=== PATIENT | female | born 1985 | race Two or more races ===

== ENCOUNTER 2017-06-10 13:34 | Inpatient (IN) | payer OTHER ==
[2017-06-10] MEDS ORDERED: LACTATED RINGERS with DEXTROSE 1,000 ML IV ONE (15:45)
[2017-06-10] MEDS: SODIUM CHLORIDE 0.9% FLUSH 10 ML SOL IV PRN ×2 (15:55→21:22)
[2017-06-10 16:47] LABS: APPEARANCE,URINE Clear; BILIRUBIN,URINE NEGATIVE (NEGATIVE); COLOR,URINE Yellow; GLUCOSE, URINE (UA) NEGATIVE (NEGATIVE); KETONES,URINE 2+ (NEGATIVE); LEUKOCYTE ESTERASE ,URINE NEGATIVE (NEGATIVE); NITRATE,URINE NEGATIVE (NEGATIVE); OCCULT BLOOD,URINE NEGATIVE (NEG-TRACE); PH,URINE 6.5
[2017-06-10 16:54] LABS: RBC,URINE 0-2 (0-3AV/HPF); WBC,URINE 0-2 (0-5AV/HPF)
[2017-06-10] MEDS ORDERED: CITRIC ACID/SODIUM CITRATE SOL PO ONE (17:07)
[2017-06-10] MEDS ORDERED: NALBUPHINE HCL 20 MG/ML SOL IV PRN (17:25)
[2017-06-10 17:32] LABS: BASOPHILS % (AUTO) 1 % (0-3); EOSINOPHILS % (AUTO) 1 % (0-9); HEMATOCRIT 33 % (35-47); MEAN CORPUSCULAR HGB CONC 36.7 gm/dl (32.0-36.0); MEAN CORPUSCULAR VOLUME 90 fL (81-99); MONOCYTES % (AUTO) 4.6 % (0-12)
[2017-06-10] MEDS: LACTATED RINGERS 1,000 ML IV SCH ×3 (18:05→23:56)
[2017-06-10 18:19] LABS: ABO B; ANTIBODY SCREEN Negative; RH TYPE Positive
[2017-06-10] MEDS ORDERED: CEFAZOLIN SODIUM 1 GM PDS IV ONE (19:00)
[2017-06-10] MEDS ORDERED: [UNRECOGNIZED DRUG - OTHER] IV ONE (19:11)
[2017-06-10] MEDS ORDERED: BENZOCAINE/MENTHOL 1 SPR TOP PRN (20:42)
[2017-06-10] MEDS ORDERED: TEMAZEPAM 15MG 15 MG CAP PO PRN (20:42)
[2017-06-10] MEDS ORDERED: WITCH HAZEL 1 EA PAD TOP PRN (20:42)
[2017-06-10] MEDS ORDERED: ONDANSETRON HCL 4 MG/2 ML SOL IV PRN (20:42)
[2017-06-10] MEDS ORDERED: METHYLERGONOVINE MALEATE 0.2 MG TAB PO PRN (20:42)
[2017-06-10] MEDS ORDERED: DIPHENHYDRAMINE 25 MG CAP PO PRN (20:42)
[2017-06-10] MEDS ORDERED: FLEET ENEMA PR PRN (20:42)
[2017-06-10] MEDS ORDERED: BISACODYL 10 MG SUP PR PRN (20:42)
[2017-06-10] MEDS ORDERED: KETOROLAC TROMETHAMINE 30 MG/ML SOL ONE (20:44)
[2017-06-10] MEDS: KETOROLAC TROMETHAMINE 30 MG/ML SOL IV PRN (21:22)
[2017-06-10] MEDS: DOCUSATE SODIUM 100 MG SGL PO SCH (21:33)
[2017-06-10] MEDS: CEFAZOLIN (PREMIX) 1 GM 1 GM/50 ML SOL IV SCH (22:03)
[2017-06-10] MEDS: APAP/HYDROCODONE 325/5 TAB PO PRN (23:54)
[2017-06-11] MEDS ORDERED: CEFAZOLIN (PREMIX) 1 GM 1 GM/50 ML SOL IV ONE (00:38)
[2017-06-11] MEDS: CEFAZOLIN (PREMIX) 1 GM 1 GM/50 ML SOL IV SCH (00:42)
[2017-06-11] MEDS: APAP/HYDROCODONE 325/5 TAB PO PRN ×6 (00:46→21:36)
[2017-06-11] MEDS: KETOROLAC TROMETHAMINE 30 MG/ML SOL IV PRN ×3 (03:23→15:41)
[2017-06-11] MEDS: SODIUM CHLORIDE 0.9% FLUSH 10 ML SOL IV PRN ×3 (03:24→15:42)
[2017-06-11] MEDS: LACTATED RINGERS 1,000 ML IV SCH ×2 (07:13→14:58)
[2017-06-11] MEDS: DOCUSATE SODIUM 100 MG SGL PO SCH ×2 (09:32→20:18)
[2017-06-11 17:09] LABS: APPEARANCE,URINE Clear; BILIRUBIN,URINE NEGATIVE (NEGATIVE); COLOR,URINE Yellow; GLUCOSE, URINE (UA) NEGATIVE (NEGATIVE); KETONES,URINE NEGATIVE (NEGATIVE); LEUKOCYTE ESTERASE ,URINE NEGATIVE (NEGATIVE); NITRATE,URINE NEGATIVE (NEGATIVE); OCCULT BLOOD,URINE TRACE INTACT (NEG-TRACE); UROBILINOGEN,URINE 0.2 (0.2-1.0 EU)
[2017-06-11 18:14] LABS: RBC,URINE 0-1 (0-3AV/HPF); WBC,URINE NEGATIVE (0-5AV/HPF)
[2017-06-11] MEDS: IBUPROFEN 600 MG TAB PO PRN (20:18)
[2017-06-12] MEDS: APAP/HYDROCODONE 325/5 TAB PO PRN ×4 (02:28→19:49)
[2017-06-12] MEDS: SODIUM CHLORIDE 0.9% FLUSH 10 ML SOL IV PRN ×2 (02:36→19:50)
[2017-06-12] MEDS: IBUPROFEN 600 MG TAB PO PRN ×3 (04:27→17:44)
[2017-06-12] MEDS: FOLIC ACID 1 MG TAB PO SCH (08:25)
[2017-06-12] MEDS: DOCUSATE SODIUM 100 MG SGL PO SCH ×2 (08:25→20:50)
[2017-06-12] MEDS: MULTIVITAMIN2 1 EA TAB PO SCH (08:25)
[2017-06-12] MEDS: FERROUS SULFATE 325 MG TAB PO SCH ×2 (08:25→20:50)
[2017-06-12 19:32] VITALS: O2SAT 98
[2017-06-13] MEDS: IBUPROFEN 600 MG TAB PO PRN ×2 (00:04→08:15)
[2017-06-13] MEDS: APAP/HYDROCODONE 325/5 TAB PO PRN ×4 (00:07→11:44)
[2017-06-13] MEDS: DOCUSATE SODIUM 100 MG SGL PO SCH (08:15)
[2017-06-13] MEDS: MULTIVITAMIN2 1 EA TAB PO SCH (08:15)
[2017-06-13] MEDS: FOLIC ACID 1 MG TAB PO SCH (08:15)
[2017-06-13] MEDS: FERROUS SULFATE 325 MG TAB PO SCH (08:15)
[2017-06-13 13:54] VITALS: BP 114/76; PULSE 82; RESP 20; TEMP 97.4
== END 2017-06-13 12:35 | disposition home or self-care (01) | DRG 766 ==
LOC: OBSVTOIN 13:34 → OB 13:34
PROVIDERS: ADMIT Family Medicine; ATTEND Family Medicine
PROC: 10D00Z1 Extraction of Products of Conception, Low, Open Approach (ICD-10-PCS; principal; 2017-06-13)
DX: O75.82 Onset (spontaneous) of labor after 37 completed weeks of gestation but before 39 completed weeks gestation, with delivery by (planned) cesarean section (principal); Z37.0 Single live birth; O34.219 Maternal care for unspecified type scar from previous cesarean delivery; Z3A.37 37 weeks gestation of pregnancy
CPT/HCPCS: 36415; 59025; 81001; 84112; 85018; 85025; 86850; 86900; 86901; 99070; J0690; J1885; J2405; J2590